=== PATIENT | female | born 2005 | race Two or more races ===

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

== ENCOUNTER 2024-07-19 00:06 | Emergency (ER) | payer MEDICAID, SELFPAY | END 2024-07-19 00:15 | disposition left against medical advice (07) | PROVIDERS: Emergency Provider Emergency Medicine | DX: Z53.21 Procedure and treatment not carried out due to patient leaving prior to being seen by health care provider (principal) ==

== ENCOUNTER 2025-04-17 04:46 | Emergency (ER) | payer MEDICAID, SELFPAY ==
[2025-04-17 05:12] VITALS: BP 137/91; PULSE 110; RESP 22; TEMP 36.6; O2SAT 98
--- NOTE | 2025-04-17 05:13 | EDNOTE_ITS ---
Altered Mental Status RME/HPI General Chief Complaint: General Adult/Misc Complain Stated Complaint: PT TOOK UNKNOWN AMOUNT OF PILLS Time Seen by Provider: 04/17/25 05:05 Arrival date/time: 04/17/25 04:46 RME / HPI RME / HPI narrative: Dr. Perez?s Main ED Evaluation: 19yo female presents to the ED for a chief complaint of AMS. On our evaluation, patient states she took 3 gummies tonight. Patient is drowsy, but arousable, but is otherwise not answering any other questions at this time. Related Data Previous Rx's ?Medication ?Instructions ?Recorded ibuprofen 600 mg tablet 1 tab PO Q8HR PRN pain #30 t abs 09/22/17 Allergies Allergy/AdvReac Type Severity Reaction Status Date / Time NKA* Allergy Uncoded 09/22/17 16:12 Review of Systems Review of Systems ROS Unobtainable: unobtainable due to mental status Past Medical History Past Medical History CARDIAC: Negative Congestive Heart Failure RESPIRATORY: Negative Chronic Obstructive Pulmonary Disease (COPD) GENITOURINARY: Negative Renal Disease ENDOCRINE: Negative Diabetes Mellitus Type 1 or Diabetes Mellitus Type 2 Social History SMOKING STATUS: Never smoker SUBSTANCE USE: marijuana ED Exam Narrative Physical exam: GENERAL APPEARANCE: drowsy, but arousable; obese, well-developed, well- nourished, no acute distress VITALS: All vitals were reviewed and the pulse ox is 98% on room air, which is normal according to my interpretation. HEENT: Normocephalic, atraumatic; pupils are dilated, equal, round, reactive to light; EOMI; mucous membranes pink, moist; oropharynx clear NECK: Supple LUNGS: CTABL; no wheezes, no rales, no rhonchi HEART: Tachycardic, regular rhythm; normal S1, S2; no murmurs ABDOMEN: non distended; normal BS; soft, no tenderness, no guarding, no rebound; no masses, no organomegaly, no hernia BACK: no CVA tenderness EXTREMITIES: atraumatic; no edema NEUROLOGIC: drowsy, but arousable; cranial nerves II-XII grossly intact; no focal sensory or motor deficits SKIN: warm, mildly diaphoretic, normal color; no rashes Course Quality Measures none Orders Category Date Time Status [place] [Urinary Catheter] QS Care 04/17/25 05:15 Active CBC Stat Lab 04/17/25 05:30 Completed CMP [Comprehensive Metabolic Panel] Stat Lab 04/17/25 05:30 Received Drug Screen,Urine Stat Lab 04/17/25 05:10 Completed Lactate (Lactic Acid) Stat Lab 04/17/25 05:30 Completed JAVIER [Alcohol, Blood Medical] Stat Lab 04/17/25 05:30 Received UA, C/S IF [Urinalysis, C/S if Indicated] Stat Lab 04/17/25 05:10 Received Vital Signs Vital signs: Vital Signs Temperature 97.8 F 04/17/25 05:12 Pulse Rate 110 H 04/17/25 05:12 Respiratory Rate 22 H 04/17/25 05:12 Blood Pressure 137/91 H 04/17/25 05:12 Pulse Oximetry (%) 98 04/17/25 05:12 Oxygen Delivery Method Room Air 04/17/25 05:12 Altered Mental Status MDM Narrative MDM Narrative:: Scribe Attestation: 04/17/25 Carey Sullivan am scribing for and in the presence of Dr. Peerz. Patient data External records reviewed:: [facility] previous records (Per chart review, patient was seen here on 06/09/24 for depression.) Clinical information provided by:: patient Social determinants that could affect healthcare access:: substance use Patient has the following chronic illnesses:: none How is presenting disease/condition affected by chronic disease/condition?: no chronic disease Evaluation data The following diagnostics were reviewed and interpreted by me:: lab results Lab and/or radiology exams considered but not ordered:: none Interpretation Summary: Diagnostics pending at sign out. Medications / Prescriptions Medications or Prescriptions considered but not ordered:: none Medication administrations:: none Consultations Consultation(s) initiated? (list below): No Diagnosis Differential diagnosis altered mental status: alcoholic intoxication and other (drug use, intentional overdose) Most likely diagnosis given after review of the tests above:: altered mental status, drug ingestion Admission Indicated Admission indicated?: not indicated Admission Request Was there a request for admission?: No Disposition Plan Disposition Plan: other (specify) (Signed out to Dr. Martinez at 0600 pending labs.) Discharge Plan Plan Patient Disposition: HOME (Self Care) Discharge Disposition comment: Stable at signout. Patient condition on transfer: Stable Prescriptions/Referrals Prescriptions/Med Rec: No Action ibuprofen 600 MG tablet 1 tab PO Q8HR PRN (Reason: pain) Qty: 30 0RF Referrals: Temporary Provider,ED [Physician] - In 1 week Problem List Clinical Impression: Drug ingestion Patient/Caregiver Discharge Instructions Print Language: Maldivian Stand Alone Forms: [employer] Award Info., Patient Portal Info Letter
[2025-04-17 05:18] LABS: Collection Type, Urine Clean Catch; RBC,Urine 0 /hpf (0-3); WBC,Urine 0 /hpf (0-5)
[2025-04-17 05:36] LABS: Lactate (Lactic Acid) 1.8 mMol/L (0.4-2.0)
[2025-04-17 05:45] LABS: Basophils % (Auto) 1 % (0-2.5); Eosinophils # (Auto) 0.1 Thou/mm3 (0.0-0.5); Eosinophils % (Auto) 1 % (0-10); Hematocrit 33.9 % (36.0-46.0); Hemoglobin 11.8 g/dL (12.0-16.0); Immature Granulocytes % (Auto) 0 % (0-0); Immature Granulocytes Auto 0.03 Thou/mm3 (0.00-0.00); Lymphocytes # (Auto) 1.1 Thou/mm3 (1.0-4.8); Lymphocytes % (Auto) 13 % (10-50); Mean Corpuscular HGB Conc 34.8 g/dl (31.0-37.0); Mean Corpuscular Hemoglobin 28.2 pg (25.0-35.0); Mean Corpuscular Volume 81 fL (80-100); Monocytes # (Auto) 0.6 Thou/mm3 (0.0-0.8); Monocytes % (Auto) 7 % (0-12); Neutrophils # (Auto) 6.9 Thou/mm3 (1.8-7.7); Neutrophils % (Auto) 79 % (37-80); Nucleated Red Blood Cell % 0 /100 WBC (0); Platelet Count 319 Thou/mm3 (140-440); RDW Standard Deviation 43.1 fL (36.4-46.3); Red Blood Count 4.18 Miln/mm3 (4.00-5.20); White Blood Count 8.7 Thou/mm3 (3.6-11.0)
[2025-04-17 05:56] LABS: Amphetamine/Methamp Scrn,U Negative (Negative); Barbiturate Screen,Urine Negative (Negative); Benzodiazepines Screen,Urine Negative (Negative); Benzoylecgonine Screen, Ur Negative (Negative); Fentanyl Screen,Urine Negative (Negative); Opiate Screen,Urine Negative (Negative); THC Screen,Urine Positive (Negative)
[2025-04-17 05:58] LABS: Bilirubin,Urine Negative (Negative); Blood,Urine Negative (Negative); Clarity,Urine Turbid (Clear/Hazy); Color,Urine Yellow (Lt Yel-Yel); Culture Indicated,Urine Not Indicated; Glucose, Urine Negative (Negative); Ketones,Urine Trace (Negative); Leukocyte Esterase,Urine Negative (Negative); Nitrite,Urine Negative (Negative); Protein,Urine 1+ (Neg - Trace); Specific Gravity,Urine 1.037 (1.001-1.035); Squamous Epithelial Cell,Urine 2 /hpf (0-5)
[2025-04-17 06:02] VITALS: BP 100/52; PULSE 79; RESP 24; O2SAT 96
[2025-04-17 06:12] LABS: Alanine Aminotransferase 18 U/L (10-49); Albumin, Serum 4.4 gm/dL (3.5-5.0); Albumin/Globulin Ratio 1.8 (1.2-2.2); Alcohol, Blood Medical < 3.0 mg/dL (0-10.0); Alkaline Phosphatase 100 U/L (46-116); Anion Gap 9 (7-16); BUN/Creatinine Ratio 16 Ratio (12-20); Bilirubin,Total 0.3 mg/dL (0.3-1.2); Blood Urea Nitrogen 13 mg/dL (9-23); Carbon Dioxide 23.9 mMol/L (20.0-31.0); Chloride 108 mMol/L (98-107); Creatinine (Component) 0.8 mg/dL (0.6-1.3); Globulin 2.4 gm/dL (2.3-3.5); Glucose 137 mg/dL (74-106); Osmolality,Calculated 283 (275-295); Potassium 4.1 mMol/L (3.4-5.1); Sodium 141 mMol/L (136-145); Total Protein 6.8 gm/dL (5.7-8.2); eGFR > 60 See Note
--- NOTE | 2025-04-17 06:18 | EDNOTE_ITS ---
Emergency Room Addendum Addendum Narrative: 0600: Care assumed from Dr. Perez, the previous shift emergency physician. Past medical, surgical, social and family history reviewed. Vitals and home medications reviewed. I will assume the care of the patient at this time, pending remainder of labs and final disposition. Please refer to the emergency department record for history and examination from initial visit.? Physical exam by me shows patient under no acute distress at this time. 0946: Patient states she is fine and does not want to her herself. Patient remains clinically stable throughout the emergency department visit. Re- assessment at the time of disposition demonstrates that the patient is in no acute distress. We reviewed all the results, analysis, and treatment plans. Patient is amenable to discharge. Strict return precautions were outlined. Patient was discharged in stable condition.
[2025-04-17 07:08] VITALS: BP 106/58; PULSE 67; RESP 18; O2SAT 95
--- NOTE | 2025-04-17 07:12 | PC.NURSE ---
pt asleep in bed in no apparent distress. respirations even and unlabored. pt normal sinus rhythm on media monitor.
[2025-04-17 07:13] VITALS: PULSE 67
[2025-04-17 09:13] VITALS: BP 100/51; PULSE 61; RESP 16; O2SAT 96
== END 2025-04-17 10:54 | disposition home or self-care (01) ==
PROVIDERS: Emergency Medicine; Emergency Provider Emergency Medicine
DX: R40.0 Somnolence (principal); T50.905A Adverse effect of unspecified drugs, medicaments and biological substances, initial encounter
CPT/HCPCS: 51702; 36415; 80053; 80307; 80320; 81001; 83605; 85025; 99283; A4314; G0480